=== PATIENT | male | born 1975 | race Caucasian/White ===

== ENCOUNTER 2017-11-17 12:35 | Day surgery (SDC) | payer OTHER ==
[~2017-11-17] VITALS: Ht 182.9 cm; Wt 93.0 kg
[~2017-11-17 12:35] MED LIST: BENADRYL ALLERG25 MG PO
[2017-11-17 13:25] VITALS: BP 118/60
[2017-11-17] MEDS ORDERED: MOTRIN600 MG PO (15:49)
[2017-11-17] MEDS ORDERED: NORCO 5/3251 TABLET PO (15:49)
[2017-11-17 16:26] VITALS: BP 115/67
[2017-11-17 17:00] VITALS: BP 114/63
== END 2017-11-17 17:10 | disposition home or self-care (01) ==
LOC: SDC 12:35
PROC: 0KBF0ZZ Excision of Right Trunk Muscle, Open Approach (ICD-10-PCS; principal; 2017-11-17)
DX: D17.79 Benign lipomatous neoplasm of other sites (principal)
CPT/HCPCS: 88304; J0690; J2250; J2405; J2710; J3010; J7643; S0020